=== PATIENT | male | born 1975 | race Caucasian/White ===

== ENCOUNTER → 2024-11-16 | Outpatient (CLI) | payer BC, SELFPAY ==
[2024-11-16 13:56] LABS: Prostate Specific Antigen 1.08 ng/mL (0-4.00)
== END | disposition home or self-care (01) ==
PROVIDERS: PCP Specialist; Referring Provider Urology; Visit Provider Urology
DX: N40.1 Benign prostatic hyperplasia with lower urinary tract symptoms (principal)
CPT/HCPCS: 36415; 84153

== ENCOUNTER → 2024-12-07 | Outpatient (BNVA) | payer BC, SELFPAY | END | disposition home or self-care (01) | PROVIDERS: PCP Specialist; Referring Provider Specialist; Visit Provider Urology | DX: N40.1 Benign prostatic hyperplasia with lower urinary tract symptoms (principal); N13.8 Other obstructive and reflux uropathy; Z87.442 Personal history of urinary calculi | CPT/HCPCS: 81003; 99212; G0463 ==

== ENCOUNTER 2025-01-09 10:40 | Day surgery (SDC) | payer BC, SELFPAY ==
--- NOTE | 2025-01-08 07:00 | EKG_ITS ---
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
[2025-01-08 09:18] VITALS: BMI 22.4
[2025-01-08 09:41] LABS: Collection Type, Urine Clean Catch; Squamous Epithelial Cell,Urine 0 /hpf (0-5)
[2025-01-08 09:55] LABS: Amorphous Crystals,Urine Present (Absent); Bilirubin,Urine Negative (Negative); Blood,Urine Negative (Negative); Color,Urine Yellow (Lt Yel-Yel); Glucose, Urine Negative (Negative); Ketones,Urine Negative (Negative); Leukocyte Esterase,Urine Negative (Negative); Nitrite,Urine Negative (Negative); PH,Urine 7.0 (5.0-7.0); Protein,Urine Negative (Neg - Trace); RBC,Urine 4 /hpf (0-3); Specific Gravity,Urine 1.020 (1.001-1.035); Urobilinogen,Urine Negative mg/dL (0.0-1.0); WBC,Urine 9 /hpf (0-5)
[2025-01-08 10:11] LABS: Alanine Aminotransferase 22 U/L (10-49); Albumin, Serum 4.8 gm/dL (3.5-5.0); Albumin/Globulin Ratio 2.2 (1.2-2.2); Alkaline Phosphatase 67 U/L (46-116); Anion Gap 8 (7-16); Aspartate Amino Transferase 18 U/L (0-34); BUN/Creatinine Ratio 15 Ratio (12-20); Bilirubin,Total 0.9 mg/dL (0.3-1.2); Blood Urea Nitrogen 15 mg/dL (9-23); Calcium 9.3 mg/dL (8.3-10.6); Calcium (Corrected) 9.3 mg/dL (8.5-10.1); Carbon Dioxide 27.9 mMol/L (20.0-31.0); Chloride 105 mMol/L (98-107); Creatinine (Component) 1.0 mg/dL (0.6-1.3); Estimated Creatinine Clearance 89.5 mL/min (>60); Globulin 2.2 gm/dL (2.3-3.5); Glucose 113 mg/dL (74-106); Osmolality,Calculated 283 (275-295); Potassium 4.6 mMol/L (3.4-5.1); Sodium 141 mMol/L (136-145); Total Protein 7.0 gm/dL (5.7-8.2); eGFR > 60 See Note
[2025-01-08 10:12] LABS: Basophils # (Auto) 0.0 Thou/mm3 (0.0-0.2); Basophils % (Auto) 1 % (0-2.5); Eosinophils # (Auto) 0.2 Thou/mm3 (0.0-0.5); Eosinophils % (Auto) 4 % (0-10); Hematocrit 44.0 % (41.0-53.0); Hemoglobin 14.7 g/dL (13.5-16.0); Immature Granulocytes Auto 0.01 Thou/mm3 (0.00-0.00); Lymphocytes # (Auto) 1.2 Thou/mm3 (1.0-4.8); Lymphocytes % (Auto) 23 % (10-50); Mean Corpuscular HGB Conc 33.4 g/dl (31.0-37.0); Mean Corpuscular Hemoglobin 26.9 pg (25.0-35.0); Mean Corpuscular Volume 81 fL (80-100); Monocytes # (Auto) 0.4 Thou/mm3 (0.0-0.8); Monocytes % (Auto) 8 % (0-12); Neutrophils # (Auto) 3.5 Thou/mm3 (1.8-7.7); Neutrophils % (Auto) 65 % (37-80); Nucleated Red Blood Cell # 0.00 Thou/mm3 (0.00-0.00); Nucleated Red Blood Cell % 0 /100 WBC (0); Platelet Count 250 Thou/mm3 (140-440); RDW Standard Deviation 38.6 fL (35.1-43.9); Red Blood Count 5.46 Miln/mm3 (4.50-5.90); White Blood Count 5.4 Thou/mm3 (3.8-10.6)
[2025-01-08 10:45] LABS: Partial Thromboplastin Time 27.4 Seconds (22.0-36.0)
[2025-01-08 10:56] LABS: Clarity,Urine Hazy (Clear/Hazy)
[2025-01-09] VITALS (8 sets, daily range): BP systolic 97–153; BP diastolic 55–92; PULSE 77–124; RESP 12–24; TEMP 36.2–37.4; O2SAT 95–100; BMI 21.9
[2025-01-09] MEDS: RINGERS LACTATED 1000 ML 1,000 ML 60 ML IV (11:25)
--- NOTE | 2025-01-09 14:59 | PD.SUROPNT ---
Date of Procedure 01/09/25 Pre Op Diagnosis Right inguinal hernia Post Op Diagnosis Sliding right inguinal hernia and lipoma of the cord Procedure Repair of sliding right inguinal hernia with excision of the lipoma of the cord on 01/09/2025 Findings This patient has a large sliding inguinal hernia the anterior posterior wall of the inguinal canal is weak and is sliding in and out. There also is a lipoma of the cord that required removal. Procedure Description Patient was examined in the preop area. Site and site were marked. Procedure was discussed with the patient in detail. The risk benefits alternatives were discussed with the patient and informed consent was obtained. The risks include bleeding infection recurrence of the hernia testicular atrophy and anesthesia related risks. The patient was brought to the operating room and placed on the operating table in supine position. General anesthesia was administered in a satisfactory manner. IV antibiotics were given to the patient. Local anesthesia 0.5% Marcaine was used as an adjunct. Curvilinear oblique incision is made in the right groin. This was deepened through the layers of skin subcutaneous tissue and Kayley's fascia. The superficial inferior epigastric veins were ligated and divided. Hemostasis was achieved. The hernia protrusion is quite large and extending out to from the external ring. External oblique aponeurosis was cleared and the external ring was defined. The shelving edge of the inguinal ligament was defined externally. A longitudinal incision was made in the external oblique aponeurosis. The inguinal canal was opened. The ilioinguinal nerve was protected. Upper and lower flaps of the external oblique aponeurosis were dissected away from the hernia sac. This was retracted with a self-retaining retractor. The cremaster muscle was incised and the hernia sac was identified. Hernia sac was gently dissected circumferentially at the neck. The spermatic vessels were identified and they were protected. After the sac was from the cord structures it was examined and the sliding nature of the hernia sac was found. The peritoneum was closed with 3-0 Vicryl pursestring suture and the hernia was reduced en trung. There was no tight hernia ring. Large lipoma of the spermatic cord was noted to be extending from the internal ring and this was dissected from the cord structures and was removed after suture ligating the neck. This was sent off as specimen. The posterior wall of the inguinal canal was then examined. The conjoined tendon was defined. The posterior wall was repaired with interrupted 0 Ethibond interrupted sutures. This was approximating the the shelving edge of the inguinal ligament with the conjoined tendon and fascia transversalis. The first suture is passing through the periosteum of the pubic tubercle. The second suture was passing through the Mateo's ligament. Rest of them passing through the shelving edge of the inguinal ligament, fascia transversalis and conjoined tendon. Internal ring was tightened. Enough space was left around the spermatic cord so as to avoid constriction at the internal ring. After the repair was completed, a releasing incision was made in the internal oblique underneath the external oblique and rectus sheath. Operative field is thoroughly irrigated with saline solution and hemostasis is again achieved. The spermatic cord and ilioinguinal nerve placed back into the inguinal canal. External oblique aponeurosis is approximated by 3-0 PDS continuous suture. Subcutaneous tissues approximated by 3-0 Vicryl interrupted sutures and skin is approximated by 4-0 Monocryl subcuticular stitches. Steri-Strips are applied.. Patient tolerated procedure very well. Complications none. Anesthesia GETA Drains None. Implants None. Pathology / specimen Other (Right inguinal hernia sac and lipoma of the cord) Estimated Blood Loss 5 Condition Stable Disposition PACU Surgeon Jaime Vazquez MD Surgical Staff Operation Date: 01/09/25 13:15 Case Staff Anesthesiologist: Sean Fu RNmanager business banking: Ingrid Ewing rn neurosurgical Rea BARRETT student Medicine RN daily release and dupe printer
--- NOTE | 2025-01-09 15:00 | SUR.PHASEI ---
pt received from OR in recovery bay 4. pt obtunded, breathing unlabored on oxymask 8l. v/s stable. pt dressing to abd cdi. report received from Dr. Nickie Castañeda and Edy MARINA.
--- NOTE | 2025-01-09 15:51 | SUR.PHASEII ---
pt able to tolerate oral fluids without difficulty swallowing or nausea/vomiting.
--- NOTE | 2025-01-09 16:20 | SUR.PHASEII ---
pt awake and alert, breathing unlabored on room air. v/s stable. pt dressing to lower abd cdi. pt able to ambulate to wheelchair with steady gait. d/c instructions given with Janki in room, all questions answered. pt d/c via wheelchair with all belongings.
== END 2025-01-09 16:20 | disposition home or self-care (01) ==
PROVIDERS: PCP Specialist; Referring Provider Specialist; Visit Provider Specialist
PROC: (CPT 49525; principal; 2025-01-09 13:00)
DX: K40.90 Unilateral inguinal hernia, without obstruction or gangrene, not specified as recurrent (principal); Z01.810 Encounter for preprocedural cardiovascular examination
CPT/HCPCS: 49525; 55520; 36415; 80053; 81001; 85025; 85730; 93005; A4217; A4649; J0690; J1100; J2704; J2765; J3010; J3490; J7120; A9270